=== PATIENT | female | born 1995 | race Caucasian/White ===

== ENCOUNTER 2020-02-22 11:56 | Emergency (ER) | payer OTHER, SELFPAY ==
[~2020-02-22] VITALS: Ht 170.2 cm; Wt 63.6 kg
[2020-02-22 12:02] VITALS: BP 126/89
[2020-02-22] MEDS ORDERED: ALBU6.7H9 INH (12:52)
[2020-02-22] MEDS ORDERED: AZIT250T PO (12:53)
== END 2020-02-22 13:00 | disposition home or self-care (01) ==
LOC: ER 11:56 → EEVIPCON 11:56 → ER 13:00
DX: U07.1 COVID-19 (principal); Z88.1 Allergy status to other antibiotic agents; Z79.899 Other long term (current) drug therapy
CPT/HCPCS: 36415; 71045; 99284; C9803

== ENCOUNTER 2024-02-23 08:46 | Outpatient (CLI) | payer BC, OTHER ==
[~2024-02-23 08:46] MED LIST: ALBU6.7H14 INH
== END 2024-02-23 23:59 | disposition home or self-care (01) ==
LOC: LAB 08:46
PROVIDERS: ATTEND Obstetrics & Gynecology Reproductive Endocrinology
DX: O09.01 Supervision of pregnancy with history of infertility, first trimester (principal); Z3A.00 Weeks of gestation of pregnancy not specified
CPT/HCPCS: 36415; 84702

== ENCOUNTER 2024-05-05 14:23 | Outpatient (CLI) | payer BC, OTHER | END 2024-05-05 23:59 | disposition home or self-care (01) | LOC: RAD 14:23 | PROVIDERS: ATTEND Obstetrics & Gynecology | DX: Z34.82 Encounter for supervision of other normal pregnancy, second trimester (principal); Z3A.00 Weeks of gestation of pregnancy not specified | CPT/HCPCS: 36415; 87340 ==